=== PATIENT | male | born 1975 | race African-American/Black ===

== ENCOUNTER 2020-10-03 08:45 | Outpatient (CLI) | payer OTHER, SELFPAY | END 2020-10-03 08:46 | disposition home or self-care (01) | LOC: ANHCOVIDVC 08:45 | PROVIDERS: PCP Pediatrics | DX: Z23 Encounter for immunization (principal) | CPT/HCPCS: 0001A; 91300 ==

== ENCOUNTER 2020-10-24 08:49 | Outpatient (CLI) | payer OTHER, SELFPAY | END 2020-10-24 08:50 | disposition home or self-care (01) | LOC: ANHCOVIDVC 08:49 | PROVIDERS: PCP Pediatrics | DX: Z23 Encounter for immunization (principal) | CPT/HCPCS: 0002A; 91300 ==